=== PATIENT | female | born 1950 | race Caucasian/White ===

== ENCOUNTER → 2020-06-30 11:30 | Outpatient (CLI) | payer MEDICARE, SELFPAY ==
--- NOTE | ~2020-06-30 | CT_ITS ---
EXAMINATION:CT chest high resolution wo de DATE: 06/30/2020 11:48 INDICATION: Chest heaviness. TECHNIQUE: Computed tomography (CT) of the chest was performed without intravenous contrast. Automate d exposure control and iterative reconstruction technique were employed. The dose-length product (DLP ) was 191.25 mGy-cm. COMPARISON: CT abdomen and pelvis 12/06/2017 FINDINGS: There is mild scarring at the lung apices. There is mild bronchiectasis in right middle lob e and lingula. No honeycombing. No pleural effusion. There are nodules in the thyroid measuring up to 11 mm, likely not clinically significant. The heart size is normal. No pericardial effusion. There a re cysts in the liver measuring up to 14 mm. There is a 2.2 cm mass in right hepatic lobe without ember nge, likely benign. There is mild thoracic spondylosis. IMPRESSION: 1. Mild scarring at the lung apices. Mild bronchiectasis in right middle lobe and lingula. Reviewed, dictated and finalized at location A. IMPRESSION: 1. Mild scarring at the lung apices. Mild bronchiectasis in right middle lobe a nd lingula.
== END ==
PROVIDERS: Visit Provider Physician Assistant
DX: R06.00 Dyspnea, unspecified (principal); J47.9 Bronchiectasis, uncomplicated
CPT/HCPCS: 71250

== ENCOUNTER → 2020-08-04 14:29 | Outpatient (CLI) | payer MEDICARE, SELFPAY ==
--- NOTE | ~2020-08-04 | XR_ITS ---
EXAMINATION: XR knee LT 3V DATE: 08/04/2020 15:33 INDICATION: Left knee pain. TECHNIQUE: 3 views of left knee were obtained. COMPARISON: None. FINDINGS: Bone alignment is normal. No fracture. There is mild osteoarthritis of patellofemoral latanya rtment. There is a small knee joint effusion. IMPRESSION: 1. Mild left knee osteoarthritis. 2. Small left knee joint effusion. Reviewed, dictated and finalized at location A.
--- NOTE | ~2020-08-04 | XR_ITS ---
EXAMINATION: XR lumbar spine 2-3V DATE: 08/04/2020 15:33 INDICATION: Dorsalgia TECHNIQUE: Anteroposterior and lateral views of the lumbar spine, and cone-down lateral view of the l umbosacral junction were obtained. COMPARISON: CT dated 12/16/2017 FINDINGS: Spondylolysis with bilateral pars interarticularis defects and no significant change in 16 mm anterol isthesis L5 on S1. Severe disc height loss with Modic type III sclerotic endplate changes and inferio r endplate remodeling posteriorly at L5 resulting in mild posterior wedging. Remaining vertebral body heights are normal. Mild disc height loss at L2-L3 through L5-S1. Sacrum and bilateral sacroiliac rai ints are normal. Postoperative changes in the pelvis with suture lines in multiple surgical clips bot h the left and right hemipelvis. IMPRESSION: 1. 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 2. Mild spondylosis in the more cephalad lumbar spine. Reviewed, dictated and finalized at location A. IMPRESSION: 1. Chronic L5 spondylolysis with bilateral pars intra-articular is defects, gra de 2 anterolisthesis L5 on S1 and severe associated degenerative disc disease. 2. Mild spondylosis in the more cephalad lumbar spine.
== END ==
PROVIDERS: Visit Provider Internal Medicine
DX: M25.562 Pain in left knee (principal); M54.9 Dorsalgia, unspecified; M47.816 Spondylosis without myelopathy or radiculopathy, lumbar region; M43.16 Spondylolisthesis, lumbar region; M47.12 Other spondylosis with myelopathy, cervical region; M25.462 Effusion, left knee
CPT/HCPCS: 72100; 73562

== ENCOUNTER → 2021-01-31 07:49 | Outpatient (CLI) | payer MEDICARE, SELFPAY ==
--- NOTE | ~2021-01-31 | MM_ITS ---
EXAMINATION: MM screening [facility] BI w andres HISTORY: Screening TECHNIQUE: Craniocaudal and mediolateral oblique 3-D tomosynthesis images were obtained and synthetic 2-D images were generated. CAD analysis was submitted and interpreted. COMPARISON: Comparison to multiple prior studies sequentially, with oldest reviewed study dated 01/28. BREAST PARENCHYMAL COMPOSITION: There are scattered areas of fibroglandular density. FINDINGS: There is no evidence of suspicious mass, calcification, or architectural distortion to sugg est malignancy in either breast. There has been no suspicious interval change. IMPRESSION: 1. No mammographic evidence of malignancy. 2. Recommend routine screening mammography in one year. BI-RADS Category 1: Negative Reviewed, dictated and finalized at location A. OR PRODUCTION MANAGER
== END ==
PROVIDERS: PCP Physician Assistant; Visit Provider Physician Assistant
DX: Z12.31 Encounter for screening mammogram for malignant neoplasm of breast (principal)
CPT/HCPCS: 77063; 77067

== ENCOUNTER → 2021-02-26 07:02 | Outpatient (CLI) | payer MEDICARE, SELFPAY ==
--- NOTE | ~2021-02-26 | DEXA_ITS ---
Bone Density Report Name: SRINATH PELLETIER Age: 70 Sex: Female Ethnicity: White Date of : 1950 Indication: osteopenia; hysterectomy; postmenopausal Referring Provider: Delvis Flor Study: Bone densitometry was performed. Exam Date: February 26, 2021 Accession number: [id number] Bone Density: Region BMD T-score Z-score Classification AP Spine (L1-L4) 0.793 -2.3 -0.1 Osteopenia Femoral Neck (Left) 0.587 -2.4 -0.5 Osteopenia Total Hip (Left) 0.709 -1.9 -0.3 Osteopenia Femoral Neck (Right) 0.571 -2.5 -0.6 Osteoporosis Total Hip (Right) 0.699 -2.0 -0.4 Osteopenia Total Hip Mean 0.704 -2.0 -0.4 Osteopenia World Health Organization criteria for BMD impression classify patients as: Normal (T-score at or above -1.0), Osteopenia (T-score between -1.0 and -2.5), or Osteoporosis (T-score at or below -2.5). 10-year Fracture Risk: FRAX not reported because: Some T-score for Spine Total or Hip Total or Femoral Neck at or below -2.5 Previous Exams: Region Exam Age BMD T-score BMD Change BMD Change Date g/cm2 vs Baseline vs Previous AP Spine(L1-L4) 02/26/2021 70 0.793 -2.3 -0.045* -0.009 02/23/2019 68 0.802 -2.2 -0.036* -0.042* 02/10/2016 65 0.844 -1.8 0.006 0.006 02/07/2014 63 0.838 -1.9 Total Hip(Left) 02/26/2021 70 0.709 -1.9 -0.067* -0.010 02/23/2019 68 0.719 -1.8 -0.057* -0.018 02/10/2016 65 0.737 -1.7 -0.039* -0.039* 02/07/2014 63 0.776 -1.4 Total Hip(Right) 02/26/2021 70 0.699 -2.0 -0.056* -0.007 02/23/2019 68 0.706 -1.9 -0.049* -0.045* 02/10/2016 65 0.751 -1.6 -0.004 -0.004 02/07/2014 63 0.755 -1.5 *Denotes significance at 95% confidence level, LSC for AP Spine = 0.022 g/cm2, LSC for Total Hip = 0.027 g/cm2 Clinical Information Provided by Patient: Has used the following medications: Vitamin D, Calcium Has the following medical conditions: Hysterectomy Patient maximum height was 62.25 Menopause Age: 41 Does not regularly consume dairy products Onset of menses at age 12 Number of children 1 Impression: The patient has osteoporosis, based on the Right Femoral Neck T-score. No significant bone loss was observed. Discussion: INCREASED RISK OF FRACTURE. BONE DENSITY IS UNDESIRABLY LOW AT ONE OR MORE SKELETAL SITES, CONSISTENT WITH POSTMENOPAUSAL O
== END ==
PROVIDERS: PCP Physician Assistant; Visit Provider Physician Assistant
DX: M81.0 Age-related osteoporosis without current pathological fracture (principal); M85.88 Other specified disorders of bone density and structure, other site; M85.852 Other specified disorders of bone density and structure, left thigh
CPT/HCPCS: 77080

== ENCOUNTER → 2021-06-29 14:56 | Outpatient (CLI) | payer MEDICARE, SELFPAY ==
--- NOTE | ~2021-06-29 | XR_ITS ---
EXAM: XR shoulder RT min 2V HISTORY: M25.511 - Pain in right shoulder COMPARISON: None available FINDINGS: Decreased mineralization. No fracture or dislocation. No lytic or blastic lesion. Mild deg enerative change at the AC and glenohumeral joints. No erosion or periosteal change. Soft tissues wit hin normal limits. IMPRESSION: No acute osseous finding in the right shoulder. Reviewed, dictated and finalized at location K.
--- NOTE | ~2021-06-29 | XR_ITS ---
EXAMINATION:XR cervical spine 4-5V DATE: 06/29/2021 15:29 INDICATION: Neck pain TECHNIQUE: AP, lateral, bilateral oblique, lateral swimmers and odontoid views of the cervical spine are provided. COMPARISON: None FINDINGS: There are 2 mm of anterolisthesis of C3 on C4 and 2 mm of retrolisthesis of C4 on C5. The o dontoid is intact. No fracture is identified. The vertebral body heights are normal. There is moderat e loss of intervertebral disc space height at C4-5 and C5-6 and mild loss of disc space height at C3- 4. Small degenerative osteophytes project from the anterior endplates of multiple vertebral bodies. T here is moderate multilevel facet and uncovertebral joint osteoarthritis. There is mild neuroforamina l stenosis right at C5-6. Prevertebral soft tissues are normal. IMPRESSION: 1. Moderate cervical spondylosis without acute findings. Reviewed, dictated and finalized at location A.
== END ==
PROVIDERS: PCP Physician Assistant; Visit Provider Physician Assistant
DX: M54.2 Cervicalgia (principal); M25.511 Pain in right shoulder; M47.812 Spondylosis without myelopathy or radiculopathy, cervical region
CPT/HCPCS: 72050; 73030

== ENCOUNTER → 2021-07-09 11:42 | Outpatient (CLI) | payer MEDICARE, SELFPAY ==
--- NOTE | ~2021-07-09 | MR_ITS ---
EXAMINATION: MR shoulder RT wo con DATE: 07/09/2021 12:30 INDICATION: Right shoulder pain. TECHNIQUE: Magnetic resonance imaging (MRI) of the right shoulder was performed without intravenous c ontrast. Sequences included axial PD-weighted FS FSE, coronal oblique PD-weighted FS FSE and T2-weigh nathan FS FSE, and sagittal oblique T2-weighted FS FSE and T1-weighted FSE. COMPARISON: Right shoulder radiographs 06/29/2021. FINDINGS: Coracoacromial arch: The acromion undersurface is flat in morphology (type I). Subacromial spurring is noted. There is sev ere acromioclavicular joint osteoarthritis including inferiorly directed osteophytes. There is modera te subacromial/subdeltoid bursitis. Rotator cuff: There is a full-thickness tear of posterior supraspinatus tendon and anterior infraspinatus tendon me asuring 9 mm anterior to posterior. The tear of the articular sided fibers is worse than the bursal s ided fibers and measures up to 2.6 cm proximal to distal. Teres minor tendon is normal. There is an i nterstitial tear of superior subscapularis tendon. There is no asymmetric fatty atrophy of the rotato r cuff muscle bellies. Biceps tendon and glenoid labrum: Biceps tendon is in bicipital groove. There is mild intra-articular biceps tendinopathy. There is deg eneration of superior glenoid labrum without well-defined tear. Fluid: There is no glenohumeral joint effusion. Bones/cartilage: There is partial-thickness cartilage loss of glenoid and humeral head. Osteophytes are noted. IMPRESSION: 1. Full-thickness rotator cuff tear. 2. Mild glenohumeral joint chondrosis. 3. Severe acromioclavicular joint osteoarthritis. 4. Moderate subacromial/subdeltoid bursitis. 5. Mild intra-articular biceps tendinopathy. Reviewed, dictated and finalized at location A.
== END ==
PROVIDERS: PCP Physician Assistant; Visit Provider Physician Assistant
DX: M25.611 Stiffness of right shoulder, not elsewhere classified (principal); M25.511 Pain in right shoulder; M75.101 Unspecified rotator cuff tear or rupture of right shoulder, not specified as traumatic; M94.8X1 Other specified disorders of cartilage, shoulder; M19.011 Primary osteoarthritis, right shoulder; M75.51 Bursitis of right shoulder; M67.921 Unspecified disorder of synovium and tendon, right upper arm
CPT/HCPCS: 73221

== ENCOUNTER → 2023-03-01 09:51 | Outpatient (CLI) | payer MEDICARE, SELFPAY ==
--- NOTE | ~2023-03-01 | DEXA_ITS ---
Bone Density Report Name: SRINATH PELLETIER Age: 72 Sex: Female Ethnicity: White Date of : 1950 Indication: osteopenia; hysterectomy; postmenopausal Referring Provider: Delvis Flor Study: Bone densitometry was performed. Exam Date: March 01, 2023 Accession number: [id number] Bone Density: Region BMD T-score Z-score Classification AP Spine (L1-L4) 0.853 -1.8 0.5 Osteopenia Femoral Neck (Left) 0.596 -2.3 -0.3 Osteopenia Total Hip (Left) 0.726 -1.8 -0.1 Osteopenia Femoral Neck (Right) 0.569 -2.5 -0.5 Osteoporosis Total Hip (Right) 0.705 -1.9 -0.3 Osteopenia Total Hip Mean 0.716 -1.9 -0.2 Osteopenia World Health Organization criteria for BMD impression classify patients as: Normal (T-score at or above -1.0), Osteopenia (T-score between -1.0 and -2.5), or Osteoporosis (T-score at or below -2.5). 10-year Fracture Risk: FRAX not reported because: Some T-score for Spine Total or Hip Total or Femoral Neck at or below -2.5 Previous Exams: Region Exam Age BMD T-score BMD Change BMD Change Date g/cm2 vs Baseline vs Previous AP Spine(L1-L4) 03/01/2023 72 0.853 -1.8 0.015 0.060* 02/26/2021 70 0.793 -2.3 -0.045* -0.009 02/23/2019 68 0.802 -2.2 -0.036* -0.042* 02/10/2016 65 0.844 -1.8 0.006 0.006 02/07/2014 63 0.838 -1.9 Total Hip(Left) 03/01/2023 72 0.726 -1.8 -0.050* 0.017 02/26/2021 70 0.709 -1.9 -0.067* -0.010 02/23/2019 68 0.719 -1.8 -0.057* -0.018 02/10/2016 65 0.737 -1.7 -0.039* -0.039* 02/07/2014 63 0.776 -1.4 Total Hip(Right) 03/01/2023 72 0.705 -1.9 -0.049* 0.006 02/26/2021 70 0.699 -2.0 -0.056* -0.007 02/23/2019 68 0.706 -1.9 -0.049* -0.045* 02/10/2016 65 0.751 -1.6 -0.004 -0.004 02/07/2014 63 0.755 -1.5 *Denotes significance at 95% confidence level, LSC for AP Spine = 0.022 g/cm2, LSC for Total Hip = 0.027 g/cm2 Clinical Information Provided by Patient: Has used the following medications: Vitamin D, Calcium Has the following medical conditions: Hysterectomy Patient maximum height was 62.25 Menopause Age: 41 Does not regularly consume dairy products Onset of menses at age 12 Number of children 1 Impression: The patient has osteoporosis, based on the Right Femora
--- NOTE | ~2023-03-01 | MM_ITS ---
EXAMINATION: MM screening [facility] BI w andres HISTORY: Screening mammogram TECHNIQUE: Craniocaudal and mediolateral oblique 3-D tomosynthesis images were obtained and synthetic 2-D images were generated. CAD analysis was submitted and interpreted. COMPARISON: 01/31/2021, 02/18/2018, 10/11/2015 BREAST PARENCHYMAL COMPOSITION: There are scattered areas of fibroglandular density. FINDINGS: No suspicious mass, calcification, or architectural distortion are identified in either jarret ast to suggest malignancy. There has been no suspicious interval change. IMPRESSION: 1. No mammographic evidence of malignancy. 2. Recommend routine screening mammography in one year. BI-RADS Category 1: Negative Reviewed, dictated and finalized at location A. R OFF DRYING KILN
== END ==
PROVIDERS: PCP Physician Assistant; Visit Provider Physician Assistant
DX: Z12.31 Encounter for screening mammogram for malignant neoplasm of breast (principal); M81.0 Age-related osteoporosis without current pathological fracture
CPT/HCPCS: 77063; 77067; 77080